=== PATIENT | female | born 1995 | race Caucasian/White ===

== ENCOUNTER 2019-05-24 06:00 | Outpatient (CLI) | payer SELFPAY ==
[~2019-05-24] VITALS: Ht 162.6 cm; Wt 67.2 kg
[~2019-05-24 06:00] MED LIST: ACET325T45 PO; ONDA4TAB8 PO
[2019-05-24 06:36] VITALS: BP 105/64; PULSE 90; RESP 18; Ht 162.6 cm; Wt 67.2 kg
[2019-05-24] MEDS ORDERED: NITR-58 PO (08:13)
--- NOTE | 2019-05-24 08:54 | TRIAGE ---
OB Triage Datetime Report Generated by CPN: 05/24/2019 08:53 Datetime: 05/24/2019 07:00 Stage of : OB Triage Maternal Assessment Level of Consciousness: Keenly Alert, Responsive Labor Evaluation Frequency: 3UC/HR Monitor Mode: External Duration (sec)2399: 50-70 Quality: Mild Resting Tone [place]: Relaxed Pain Assessment Pain Scale: 5 Pain Presence: Constant Pain Type: Ache Pain Location: Back Pain Goal: 3 Vaginal Exam Membrane Status: Intact Vaginal Bleeding: None Datetime: 05/24/2019 06:45 Monitor Mode: Palpation Resting Tone [place]: Relaxed Datetime: 05/24/2019 06:28 Time of Arrival: 05/24/2019 05:52 EGA: 21.4 Arrived By: Wheelchair Arrived From: Home Chief Complaint: Constant R sided back pain, more when she walks or lays on that side. Movement: Present Contractions: Denies/Absent Rupture of Membranes: Denies Vaginal Bleeding: None Vaginal Discharge: Denies Recent Sexual Intercouse: Denies Abdominal Trauma: Not Applicable Patient Complaints: Back Pain Time Provider Notified: 05/24/2019 06:48 Provider Notified: DELSHAD/HADADIAN Initial Plan: Cont toco, doppler FHT's/UA/CVL/ROCEPHIN 1GM IM Datetime: 05/24/2019 06:18 Heart Rate FHR Baseline Rate: 155 Monitor Mode: Doppler Datetime: 05/24/2019 06:17 Stage of : OB Triage Assessment Type: Triage Maternal Assessment Level of Consciousness: Keenly Alert, Responsive DTR's/Clonus: DTRs 2+; No Clonus Headache: Denies Blurred Vision: No Respiratory Effort: Unlabored; Regular Rhythm; Equal Expansion Breath Sounds, Left: Clear and Equal Breath Sounds, Right: Clear and Equal Nausea/Vomiting: Denies RUQ Epigastric Pain: Denies Lower Extremities Edema: None Degree: None Upper Extremities Edema: None Degree: None Facial Edema: None Temperature Route: Oral Fall Risk Assessment History of Falling: (0) No Secondary Diagnosis: (0) No Ambulatory Aid: (0) Bedrest/Nurse Assist IV Therapy: (0) No Gait: (0) Normal/Bedrest/Immobile Mental Status: (0) Oriented to Own Ability Fall Score: 0 Fall Risk Score Definition: No Risk: No action required Pain Assessment Pain Scale: 8 Pain Presence: Constant Pain Type: Sharp Pain Location: Back (Annotations: Right side) Pain Assessment Comments: Hurts more when she bends her right knee up or if she sleeps on her right side. Datetime: 05/24/2019 06:16 Monitor Mode: Palpation Resting Tone [place]: Relaxed
[2019-05-24] MEDS ORDERED: CEFTRIAXONE 1 GM INJ IM ONE (09:00)
--- NOTE | 2019-05-24 22:27 | PN ---
Triage Information Date/Time Reason for visit: Abd/pelvic pain Weeks of Gestation 21 weeks and 4 days /Para -0-1-1 Diabetes: none Hypertention: none Objective Vital Signs Date Temp Pulse Resp B/P (MAP) Pulse Ox O2 O2 Flow FiO2 Time Delivery Rate 05/24/19 98.3 90 18 105/64 Room Air 06:36 (78) Heart Rate: 140's (Low) Contractions: None Results/Medications Results 24 hrs Laboratory Tests Test 05/24/19 06:10 Urine Color YELLOW Urine Clarity CLOUDY A Urine pH 7.0 Urine Specific [place] 1.011 Urine Ketones NEGATIVE Urine Nitrite NEGATIVE Urine Bilirubin NEGATIVE Urine Urobilinogen NEGATIVE Urine Leukocyte Esterase 2+ H Urine Microscopic RBC 12 H Urine Microscopic WBC > 182 H Urine Squamous Epithelial Cells FEW Urine Bacteria FEW A Urine Hemoglobin 1+ H Urine Glucose NEGATIVE Urine Total Protein 2+ H Disposition: Discharge Assessment/Plan 23 years old 3 para 1-0-1-1 with single intrauterine at 21- week and 4 days with a WENCESLAO of 09/30/2019 complaining of abdominal pain at right side.She states good movement. She denies nausea, vomiting, shortness of breath, chest pain, headache, visual changes, vaginal bleeding or LOF. -FHR: No sign of metabolic acidosis- Category I -Contractions: None -Urinalysis performed, 185 WBC was noted. 1 dose of Rocephin given in triage. Urine culture sent. Macrobid 100 mg every 12 hours for 7 days given -Ultrasound performed: Normal SELENA and cervical length. -Symptoms and sign of labor, preeclampsia, kick count discussed with patient, she voiced understanding. All of her questions answered. -Patient was discharged home in stable condition with the appropriate discharge instructions provided. I would like patient to have close follow-up with her primary physician or outpatient clinic in 1-2 days or return to triage for worsening symptoms or any other urgent concerns. DONALDO SPANGLER May 24, 2019 22:26
== END 2019-05-24 08:45 | disposition home or self-care (01) ==
LOC: L-D 06:00 → OBT 06:00
PROVIDERS: ATTEND Obstetrics & Gynecology
DX: O26.892 Other specified pregnancy related conditions, second trimester (principal); R10.9 Unspecified abdominal pain; Z3A.21 21 weeks gestation of pregnancy
CPT/HCPCS: 76817; 81001; 87086; 96372; G0463; J0696